=== PATIENT | female | born 1980 | race Hispanic/Latino ===

== ENCOUNTER → 2023-12-07 | Day surgery (SDC) | payer OTHER ==
--- NOTE | 2023-12-07 10:21 | RAD REPORT ---
EXAM DESCRIPTION: Ultrasound-guided vacuum assisted left breast core biopsy CLINICAL HISTORY: Breast mass N63.20 COMPARISON: No comparisons FINDINGS: Informed consent was obtained and time-out was performed. The patient's left breast was prepped and draped in the usual sterile fashion. 1% lidocaine was used for local anesthetic purposes. Utilizing aseptic technique and ultrasound guidance, a 12 gauge vacuum assisted core biopsy device wa s used to obtain 2 core specimens through the 2.5 cm mass of interest upper-outer quadrant. A post bi opsy clip was then placed. All collected material was sent for cytology. Patient tolerated procedure well. IMPRESSION: Successful ultrasound guided vacuum assisted left breast mass biopsy.
== END ==
LOC: DS 08:45
PROVIDERS: ATTEND Obstetrics & Gynecology
DX: D48.61 Neoplasm of uncertain behavior of right breast (principal); N64.89 Other specified disorders of breast
CPT/HCPCS: 19083; 88305

== ENCOUNTER 2025-04-20 02:03 | Emergency (ER) | payer OTHER ==
--- OUTSIDE RECORDS SUMMARY | 2025-04-20 02:07 | XMS REPORT | Continuity of Care Document ---
Author Name Unknown Address [address] [place] [address] Organization [facility] [place] Address 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 Name Role Phone Jun Dugan MA Attending Clinician Unavailab Mishel Euceda MD Attending Clinician [phone] MISHEL ORLANDO Attending Clinician Unavailabl e Payers Payer Name Policy Type Policy Number Effective Date Expirati on Date Source [employer] [id number] 2024 00:00:00 Social History Social Habit Start Date Stop Date Quantity Comments Source Gender identity 2023-11-14 15:40:28 Identifies as female gender (finding) [facility] ASSERTION Not Romi Folres Sexual orientation [facility] Alcoholic beverage intake 2024-10-06 00:00:00 2024-10-06 00:00:00 Lifetime non-drinker (finding) [facility] History of Social function 2024-10-06 00:00:00 2024-10-06 00:00:00 [facility] Tobacco use and exposure 2024-10-03 00:00:00 2024-10-03 00:00:00 Smokeless tobacco non-user [facility] Sex 2023-11-14 15:40:28 2023-11-14 15:40:28 Female (finding) [facility] Smoking Status Start Date Stop Date Source Tobacco smoking consumption unknown [facility] Never smoked tobacco Romi Flores Medications Ordered Medication Name Filled Medication Name Start Date Stop Date Current Medication? Ordering Clinician Indication Dosage Frequency Signature (SIG) Comments Components Source norethindro ne-ethinyl estradiol-f errous fumarate biphasic (Lo Loestrin Fe) 1 MG-10 MCG / 10 MCG tablet norethindro ne-ethinyl estradiol-f errous fumarate biphasic (Lo Loestrin Fe) 1 MG-10 MCG / 10 MCG tablet 02-26 00:00: 00 02-26 23:59 :00 No 1{tbl} QD Take 1 tablet by mouth 1 time each day. Romi Adorno [facility] olmesartan- hydroCHLORO thiazide (BENIcar HCT) 20-12.5 MG tablet olmesartan- hydroCHLORO thiazide (BENIcar HCT) 20-12.5 MG tablet - 13:56: 25 Yes 1{tbl} QD Take 1 tablet by mouth 1 time each day. Romi Adorno [facility] norethindro ne-ethinyl estradiol-f errous fumarate biphasic (Lo Loestrin Fe) 1 MG-10 MCG / 10 MCG tablet norethindro ne-ethinyl estradiol-f errous fumarate biphasic (Lo Loestrin Fe) 1 MG-10 MCG / 10 MCG tablet 1- 00:00: 00 02-26 00:00 :00 No TAKE 1 TABLET ORALLY ONCE A DAY ONLY THE ACTIVE PILLS FOR 3 MONTHS AND THEN THE ENTIRE PACK OF PILLS FOR HER 4TH PACK 90 DAYS Romi Adorno [facility] Vital Signs Vital Name Observation Time Observation Value Comments S paxton Systolic blood pressure 2024-10-06 13:55:00 133 mm[Hg] [facility] Diastolic blood pressure 2024-10-06 13:55:00 87 mm[Hg] [facility] Heart rate 2024-10-06 13:55:00 93 /min Shirin arita Kyree [facility] Body temperature 2024-10-06 13:55:00 36.28 Danielle [facility] Body height 2024-10-06 13:55:00 160 [facility] weight 2024-10-06 13:55:00 71.215 kg [facility] BMI 2024-10-06 13:55:00 27.81 kg/m2 [facility] Systolic blood pressure 2024-10-06 13:55:00 133 mm[Hg] [facility]el[facility] Diastolic blood pressure 2024-10-06 13:55:00 87 mm[Hg] [facility] Heart rate 2024-10-06 13:55:00 93 /min [facility] 2024-10-06 13:55:00 36.28 Danielle [facility] Body height 2024-10-06 13:55:00 160 cm Koffi wilson [facility] Body weight 2024-10-06 13:55:00 71.215 kg Koffi wilson [facility] BMI 2024-10-06 13:55:00 27.81 kg/m2 [facility] Procedures Procedure Date / Time Performed Performing Clinician Source PAP IMAGE-GUIDED W/AGE BASED SCR PROTOCOLS (AMB) 2024-10-06 14:48:00 Mishel Orlando [facility] Bilateral diagnostic mammogram with tomosynthesis 2024-10-06 00:00:00 [facility] Bilateral breast US complete 2024-10-06 00:00:00 [facility] PAP SMEAR 2023-10-04 00:00:00 ProviderYunioric External Data [facility] PAP SMEAR 2022-09-24 00:00:00 ProviderYunior External Data [facility] Plan of Care Planned Activity Planned Date Details Comments Source Encounters Start Date/Time End Date/Time Encounter Type Admission Type Attending [facility] Care Facility Care Department Encounter ID Source 2025-03-28 00:00:00 2025-03-28 16:45:45 Telephone Jun Dugan Aryelle [facility] 1..[id number] [id number] [facility] 2025-02-26 00:00:00 2025-02-26 10:27:15 Refill Mishel Orlando [facility] 1..840.114 [id number] Romi green [facility] 2024-10-06 13:44:55 2024-10-06 14:19:06 Outpatient Elective MISHEL ORLANDO EOUT EOUT [id number] [facility] 2024-10-06 13:15:00 2024-10-06 14:19:06 [facility] [id number] Romi Adorno [facility] 2024-09-14 00:00:00 2024-09-18 16:25:21 [facility] [id number] Romi Adorno [facility] 2024-07-12 10:24:55 2024-07-12 10:24:55 Outpatient [facility] [id number] Lalit Lama 2024-06-29 08:19:19 2024-06-29 08:19:19 Outpatient [facility] [id number] Lalit Lama 2024-06-28 10:59:29 2024-06-28 10:59:29 Outpatient [facility] [id number] Lalit Lama 2023-08-18 10:33:56 2023-08-18 10:33:56 Outpatient [facility] [id number] Lalit Lama 2023-07-27 09:19:42 2023-07-27 09:19:42 Outpatient [facility] [id number] Lalit Lama Results Test Description Test Time Test Comments Results Result Co mments Source [facility] Notes Upcoming Encounters Date/Time Note Provider Source Health Maintenance Due Date Last Done Comments Lipid Panel 1981 Varicella Vaccines (1 of 2 - 13+ 2-dose series) 1994 DTaP/Tdap/Td Vaccines (1 - Tdap) 2000 Hepatitis B Vaccines (1 of 3 - 19+ 3-dose series) 2000 HPV Vaccines (1 - 3-dose SCD M series) 2008 Mammogram 2021 Influenza Vaccine (#1) 2025 Annual Physical 10/06/2025 10/06/2024, 10/06/2024 Pap Smear 10/06/2027 10/06/2024, 10/04/2023, 09/24/2022 Cervical Cancer Screening 10/06/2029 HPV/Cotest 10/06/2029 10/06/2024 Respiratory Syncytial Virus (RSV) Adult Series (1 - 1-dose 75+ series) 2056 HIB Vaccines Aged Out No longer eligi ble based on patient's age to complete this topic Hepatitis A Vaccines Aged Out No long er eligible based on patient's age to complete this topic IPV Vaccines Aged Out No longer eligi ble based on patient's age to complete this topic Meningococcal Vaccine Aged Out No luca bonnie eligible based on patient's age to complete this topic Pneumococcal Vaccine: Pediatrics (0 to 5 Years) and At-Risk Patients (6 to 64 Years) Aged Out No longer eligible b ased on patient's age to complete this topic Rotavirus Vaccines Aged Out No longer eligible based on patient's age to complete this topic [facility] [id number] 16:44:53 reviewed Mammogram and also received on behalf of [facility] a no show to a follow up apt patient had for a surgical consult Patient was encouraged to call facility back [facility] [id number] 10:27:20* [facility] [id number] 10:27:20 Upcoming Encounters Health Maintenance Due Date Last Done Comments Lipid Panel 1981 Varicella Vaccines (1 of 2 - 13+ 2-dose series) 1994 HPV Vaccines (1 - 3-dose series) 1996 DTaP/Tdap/Td Vaccines (1 - Tdap) 2000 Hepatitis B Vaccines (1 of 3 - 19+ 3-dose series) 2000 Mammogram 2021 Influenza Vaccine (#1) 2025 Annual Physical 10/06/2025 10/06/2024, 10/06/2024 Pap Smear 10/06/2027 10/06/2024, 10/04/2023, 09/24/2022 Cervical Cancer Screening 10/06/2029 HPV/Cotest 10/06/2029 10/06/2024 Respiratory Syncytial Virus (RSV) Adult Series (1 - 1-dose 75+ series) 2056 HIB Vaccines Aged Out No longer eligi ble based on patient's age to complete this topic Hepatitis A Vaccines Aged Out No long er eligible based on patient's age to complete this topic IPV Vaccines Aged Out No longer eligi ble based on patient's age to complete this topic Meningococcal Vaccine Aged Out No luca bonnie eligible based on patient's age to complete this topic Pneumococcal Vaccine: Pediatrics (0 to 5 Years) and At-Risk Patients (6 to 64 Years) Aged Out No longer eligible b ased on patient's age to complete this topic Rotavirus Vaccines Aged Out No longer eligible based on patient's age to complete this topic Winston [id number] 16:12:05* Consultation (Routine) - Pending Review Specialty Diagnoses / Procedures Referred By Elmer blanco Referred To Contact General Surgery Diagnoses Fibrocystic breast changes, unspecified laterality Mass of left breast, unspecified quadrant Procedures [place] OFFICE/OUTPATIENT [facility] 60 MINUTES Mishel Orlando MD [address] [address] Phone: tel: fax: Karen Gr MD [address] [address] Phone: tel: fax: Referral ID Status Reason Start Date Expiration Date Visits Requested Visits Authorized [id number] Pending Review Specialty Services Required 10/06/2024 04/04/2025 1 1 COLLECTOR* Imaging (Routine) - Pending Review Specialty Diagnoses / Procedures Referred By Elmer blanco Referred To Contact Diagnoses Fibrocystic breast changes, unspecified laterality Mass of left breast, unspecified quadrant Procedures Bilateral diagnostic mammogram with tomosynthesis Mishel Orlando MD [address] [facility] [address] [place] [address] Phone: tel: fax: Referral ID Status Reason Start Date Expiration Date V isits Requested Visits Authorized [id number] Pending Review 10/06/2024 04/04/2025 1 1 COLLECTOR [facility] [id number] 16:12:05* Mishel Orlando MD - 10/06/2024 1:15 PM RAG COLLECTOR Here for WWE Established patient here for woman exam. 44 years old 2 para 2-0-0-2. Taking low Loestrin for control and does not have menstrual period with this control. No complaint no side effects wants refill. Mammogram diagnostic and ultrasound ordered today due to left breast lump referred to Dr. Gr for further surgical recommendations. Had abnormal mammogram in October 18, 2023 BI-RADS 2 suspicion. Empower information given today. For genetic testing. HPV vaccine and flu vaccine encouraged. Review of Systems All other systems reviewed and are negative. 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 No lesions, erythema. Vagina is pink, moist, and rugous without lesions. No abnormal discharge. PAP smear collected, Assessment:Encounter Diagnoses Name Primary? Well woman exam with routine gynecological exam Cervical cancer screening Breast cancer screening by mammogram Fibrocystic breast changes, unspecified laterality Mass of left breast, unspecified quadrant Plan: - [facility] - Refill OCP - [id number] 16:12:05Upcoming Encounters Scheduled Orders Name Type Priority Associated Diagnoses Orde r Schedule Bilateral diagnostic mammogram with tomosynthesis Imaging Routine Fibrocystic breast changes, unspecified laterality Mass of left breast, unspecified quadrant Expected: 10/06/2024, Expires: 12/04/2025 Bilateral breast US complete Imaging Routine Fibrocystic breast changes, unspecified laterality Mass of left breast, unspecified quadrant Expected: 10/06/2024, Expires: 12/04/2025 Scheduled Referrals Name Type Priority Associated Diagnoses Orde r Schedule Ambulatory referral to General Surgery (aka Breast) Outpatient Referral Routine Fibrocystic breast changes, unspecified laterality Mass of left breast, unspecified quadrant Expected: 10/06/2024 (Approximate), Expires: 10/06/2025 Health Maintenance Due Date Last Done Comments Lipid Panel 1981 Varicella Vaccines (1 of 2 - 13+ 2-dose series) 1994 DTaP/Tdap/Td Vaccines (1 - Tdap) 2000 Hepatitis B Vaccines (1 of 3 - 19+ 3-dose series) 2000 Mammogram 2021 Influenza Vaccine (#1) 2024 Annual Physical 10/06/2025 10/06/2024, 10/06/2024 Pap Smear 10/06/2027 10/06/2024, 10/04/2023, 09/24/2022 Cervical Cancer Screening 10/06/2029 HPV/Cotest 10/06/2029 10/06/2024 HIB Vaccines Aged Out No longer eligi ble based on patient's age to complete this topic HPV Vaccines Aged Out No longer eligi ble based on patient's age to complete this topic Hepatitis A Vaccines Aged Out No long er eligible based on patient's age to complete this topic IPV Vaccines Aged Out No longer eligi ble based on patient's age to complete this topic Meningococcal Vaccine Aged Out No luca bonnie eligible based on patient's age to complete this topic Pneumococcal Vaccine: Pediatrics (0 to 5 Years) and At-Risk Patients (6 to 64 Years) Aged Out No longer eligible b ased on patient's age to complete this topic Rotavirus Vaccines Aged Out No longer eligible based on patient's age to complete this topic [id number] 16:12:05 Diagnosis Well woman exam with routine gynecological exam Routine gynecological examination Cervical cancer screening Screening for malignant neoplasm of the cervix Breast cancer screening by barbara kirkpatrick Fibrocystic breast changes, unspecified laterality Mass of left breast, unspeci fied quadrant [id number] 16:25:35* [id number] 16:25:35Upcoming Encounters Health Maintenance Due Date Last Done Comments Lipid Panel 1981 Annual Physical 1984 Varicella Vaccines (1 of 2 - 13+ 2-dose series) 1994 DTaP/Tdap/Td Vaccines (1 - Tdap) 2000 Hepatitis B Vaccines (1 of 3 - 19+ 3-dose series) 2000 Pap Smear 2002 Cervical Cancer Screening 2011 HPV/Cotest 2011 Mammogram 2021 Influenza Vaccine (#1) 2024 HIB Vaccines Aged Out No longer eligi ble based on patient's age to complete this topic HPV Vaccines Aged Out No longer eligi ble based on patient's age to complete this topic Hepatitis A Vaccines Aged Out No long er eligible based on patient's age to complete this topic IPV Vaccines Aged Out No longer eligi ble based on patient's age to complete this topic Meningococcal Vaccine Aged Out No luca bonnie eligible based on patient's age to complete this topic Pneumococcal Vaccine: Pediat rics (0 to 5 Years) and At-Risk Patients (6 to 64 Years) Aged Out No longer eligible b ased on patient's age to complete this topic Rotavirus Vaccines Aged Out No longer eligible based on patient's age to complete this topic [facility]
[2025-04-20] MEDS ORDERED: ONDANSETRON 4 MG/2 ML VIAL ONE (02:25)
[2025-04-20] MEDS ORDERED: KETOROLAC 30 MG/ML INJ ONE (02:25)
[2025-04-20] MEDS ORDERED: FAMOTIDINE 20 MG/2 ML VIAL IV ONE (02:26)
[2025-04-20] MEDS ORDERED: NA CHLORIDE 0.9% 1,000 ML ONE (02:26)
[2025-04-20] MEDS ORDERED: MORPHINE 4 MG/ML SYR ONE ×2 (02:26→04:14)
[2025-04-20 02:59] LABS: Absolute Lymphocytes (CBC) 2.7 K/uL (0.7-4.9); Hematocrit 39.7 % (36.0-45.0); Hemoglobin 13.2 g/dL (12.0-15.0); MCH 26.4 pg (27.0-35.0); MCHC 33.3 g/dL (32.0-36.0); MCV 79.3 fL (80-100); MPV 8.7 fL (7.6-11.3); Nucleated RBC Absolute Count 0.0 (0-0); Nucleated Red Blood Cells % 0.0 % (0-0); RBC Red Blood Cell Count 5.01 M/uL (3.86-4.86); White Blood Count 11.00 thou/uL (4.3-10.9)
[2025-04-20 03:18] LABS: ALT/SGPT 18.0 U/L (13-56); AST/SGOT 14.0 U/L (15-37); Albumin 3.5 g/dL (3.4-5.0); Albumin/Globulin Ratio 0.8 (1.1-1.8); Alkaline Phosphatase 60.0 U/L (45-117); Anion Gap 11.7 mEq/L (5.0-15.0); BUN Blood Urea Nitrogen 18.0 mg/dL (7-18); Globulin 4.2 g/dL (2.3-3.5); Glucose Level 128.0 mg/dL (74-106); Lipase 45.0 U/L (13-75); Potassium 2.7 mEq/L (3.5-5.1)
[2025-04-20 04:13] LABS: Sqamous Epithelial <5 /HPF (None Seen); Urine Micro Reflex YN NO BILL MICROSCOPIC
[2025-04-20] MEDS ORDERED: TAMSULOSIN 0.4 MG SR CAP ONE (04:14)
[2025-04-20] MEDS ORDERED: METOCLOPRAMIDE 10 MG/2mL INJ ONE (04:14)
[2025-04-20] MEDS ORDERED: POTASSIUM CL SA 10 MEQ TAB PO ONE (05:16)
--- NOTE | 2025-04-20 05:44 | RAD REPORT ---
CLINICAL HISTORY: Abdominal pain. COMPARISON: None. TECHNIQUE: CT ABDOMEN PELVIS WITH IV CONTRAST on 04/20/2025 2:19 AM CDT This exam was performed according to our departmental dose-optimization program, which includes autom ated exposure control, adjustment of the mA and/or kV according to patient size and/or use of iterative reconstruction technique. FINDINGS: Lower lungs are clear. Abdomen: The liver is normal in appearance. There is minimal intrauterine extrahepatic biliary dilata tion. Gallbladder is normal in appearance. The pancreas and spleen are normal in appearance. Adrenal glands are normal. Lower pole right renal cyst measures 17 mm. There is mild left hydronephro sis. There is a 3 mm left distal ureteral calculus. Abdominal aorta is normal in course and caliber without aneurysm. There is no free air. There is no r etroperitoneal adenopathy. Pelvis: There is no bowel obstruction. Urinary bladder is unremarkable. There is no free fluid. Uteru s is normal in size. Appendix is normal. Skeleton: There are no acute osseous findings. No suspicious bony lesions. IMPRESSION: Mildly obstructing 3 mm left distal ureteral calculus. Right Bosniak I benign renal cyst measuring 1.7 cm. No follow-up imaging is recommended. JACR 2018 Fe b; 264-273, Management of the Incidental Renal Mass on CT, [employer] 202; [id number], Bosniak Classification of Cystic Renal Masses, Version 2019. Electronically signed by: Jonnathan Gregory MD 04/20/2025 05:07 AM CDT RP Due to temporary technical issues with the PACS/[employer] reporting system, reports are being nancy d by the in-house radiologist without review as a courtesy to ensure prompt reporting the interpreting radiologist is fully responsible for the content of the report. Transcribed Date/Time: 04/20/2025 5:44 AM
--- NOTE | 2025-04-20 05:51 | ER ---
Nurse's Notes [facility] Name: Catie Balderas Age: 44 yrs Sex: Female : 1980 Arrival Date: 04/20/2025 Time: 02:03 Bed 15 Private MD: Diagnosis: Acute left ureteral calculus with hydronephrosis Presentation: 04/20 02:17 Chief complaint: Patient states: left sided abdominal pain that started 2 hours ago. No cp4 N/V/D reported. Coronavirus screen: Vaccine status: Patient reports being unvaccinated. Client denies travel out of the [place] in the last 14 days. At this time, the client does not indicate any symptoms associated with coronavirus-19. Ebola Screen: Patient negative for fever greater than or equal to 101.5 degrees Fahrenheit, and additional compatible Ebola Virus Disease symptoms Patient denies exposure to infectious person. Patient denies travel to an Ebola-affected area in the 21 days before illness onset. No symptoms or risks identified at this time. Initial Sepsis Screen: Does the patient meet any 2 criteria? No. Patient's initial sepsis screen is negative. Does the patient have a suspected source of infection? No. Patient's initial sepsis screen is negative. Risk Assessment: Do you want to hurt yourself or someone else? Patient reports no desire to harm self or others. Onset of symptoms was April 20, 2025 at 00:00. 02:17 Method Of Arrival: Wheelchair cp4 02:17 Acuity: ATILIO 3 cp4 Triage Assessment: 02:18 General: Appears in no apparent distress. uncomfortable, Behavior is calm, cooperative, cp4 appropriate for age. Pain: Complains of pain in abdomen. GI: Reports lower abdominal pain, upper abdominal pain. 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 - Infectious Disease History:: Denies. - Social history:: Smoking status: Patient denies any tobacco usage or history of. - Family history:: not pertinent. Screenin:48 [facility] ED Fall Risk Assessment (Adult) History of falling in the last 3 months, kd4 including since admission No falls in past 3 months (0 pts) Confusion or Disorientation No (0 pts) Intoxicated or Sedated No (0 pts) Impaired Gait No (0 pts) Mobility Assist Device Used No (0 pt) Altered Elimination No (0 pt) Score/Fall Risk Level 0 - 2 = Low Risk Oriented to surroundings. Abuse screen: Denies threats or abuse. Nutritional screening: No deficits noted. Tuberculosis screening: No symptoms or risk factors identified. Assessment: 02:48 Pain: Pain currently is 10 out of 10 on a pain scale. Neuro:. Respiratory: No deficits kd4 noted. GI: Reports left side abd pain. 05:57 GI: Bowel sounds present X 4 quads. Abd is soft. kd4 Vital Signs: 02:17 BP 130 / 76; Pulse 76; Resp 18; Temp 97.5; Pulse Ox 100% ; Weight 74.84 kg; Height 5 cp4 ft. 5 in. ; Pain 10/10; 03:10 Pain 3/10; kd4 04:06 BP 113 / 74; Pulse 89; Resp 20; Pulse Ox 100% on R/A; kd4 04:23 Pain 7/10; kd4 05:56 BP 115 / 80; Pulse 83; Resp 18; Temp 97.8; Pulse Ox 100% on R/A; Pain 0/10; kd4 02:17 Body Mass Index 27.46 (74.84 kg, 165.1 cm) cp4 02:17 Pain Scale: Adult cp4 03:10 Pain Scale: Adult kd4 04:23 Pain Scale: Adult kd4 05:56 Pain Scale: Adult kd4 Travis Coma Score: 02:48 Eye Response: spontaneous(4). Motor Response: obeys commands(6). Verbal Response: kd4 oriented(5). Total: 15. 21:17 Eye Response: spontaneous(4). Motor Response: obeys commands(6). Verbal Response: sp4 oriented(5). Total: 15. ED Course: 02:04 Patient arrived in ED. jj6 02:08 Jose Branch MD is Attending Physician. sp4 02:18 Triage completed. cp4 02:18 Arm band placed on right wrist. Patient placed in waiting room. cp4 02:20 Inserted saline lock: 20 gauge in right antecubital area, using aseptic technique. tb4 Blood collected. Flushed with 10 mL NS. 02:46 Initial lab(s) drawn, by me, sent to lab. EKG done, by ED staff, reviewed by Jose Branch MD X-ray(s) taken. 02:47 Nuha Carrillo, CRISTIAN is Primary Nurse. kd4 02:48 Patient has correct armband on for positive identification. Bed in low position. Call kd4 light in reach. Side rails up X2. Adult w/ patient. Client placed on continuous cardiac and pulse oximetry monitoring. NIBP monitoring applied. 03:50 CT Abd/Pelvis - IV Contrast Only In Process Unspecified. EDMS 05:58 No provider procedures requiring assistance completed. IV discontinued. kd4 06:10 Provided Education on: d/c instruction. kd4 Administered Medications: 02:44 Drug: Famotidine IVP 20 mg IVP once; dilute with 10 mL 0.9% NaCl; give over 2 minutes tb4 Route: IVP; Site: right antecubital; 04:21 Follow up: Response: No adverse reaction kd4 02:44 Drug: Ondansetron IVP 4 mg IVP once; over 2 minutes Route: IVP; Site: right antecubital;tb4 04:21 Follow up: Response: No adverse reaction kd4 02:44 Drug: NS 0.9% IV 1000 ml IV at 1 bolus Per protocol; to be given as a bolus over 60 tb4 minutes Route: IV; Rate: 1 bolus; Site: right antecubital; 04:21 Follow up: IV Status: Completed infusion kd4 05:18 Follow up: IV Status: Completed infusion kd4 02:45 Drug: TORadol - Ketorolac IVP 30 mg IVP once Route: IVP; Site: right antecubital; tb4 04:20 Follow up: Response: No adverse reaction kd4 02:45 Drug: morphine IVP or IV 4 mg IVP once over 4 mins Route: IVP; Infused Over: 4 mins; tb4 Site: right antecubital; 04:20 Follow up: Response: No adverse reaction kd4 02:45 Drug: Droperidol IVP 2.5 mg IVP once Route: IVP; Site: right antecubital; tb4 04:20 Follow up: Response: No adverse reaction kd4 05:17 Follow up: Response: No adverse reaction kd4 04:19 Drug: metoCLOPramide IVP 10 mg IVP once; over 1 to 2 minutes Route: IVP; Site: right kd4 antecubital; 05:17 Follow up: Response: No adverse reaction kd4 04:20 Drug: morphine IVP or IV 4 mg IVP once over 4 mins Route: IVP; Infused Over: 4 mins; kd4 Site: right antecubital; 05:17 Follow up: Response: No adverse reaction kd4 04:20 Drug: Flomax PO 0.8 mg PO once Route: PO; kd4 05:17 Follow up: Response: No adverse reaction kd4 05:18 Drug: Potassium Chloride PO 40 mEq PO once Route: PO; kd4 05:33 Follow up: Response: No adverse reaction kd4 Medication: 05:57 VIS not applicable for this client. kd4 Output: 06:11 Urine: 1ml (Voided); Total: 1ml. kd4 Outcome: 05:50 Discharge ordered by . sp4 05:58 Discharged to home ambulatory, with family, kd4 05:58 Condition: stable 06:09 Discharge instructions given to patient, family, Instructed on discharge instructions, kd4 follow up and referral plans. medication usage, Demonstrated understanding of instructions, follow-up care, medications, Prescriptions given X 4, 06:12 Patient left the ED. kd4 Signatures: Dispatcher [employer] [id number] [id number] Jose Branch MD MD sp4 Kamilla Pardo Karim, RN RN kd4 Pamella Cabrera RN RN tb4
--- NOTE | 2025-04-20 05:51 | EDPHYS ---
Physician Documentation [facility] Name: Catie Balderas Age: 44 yrs Sex: Female : 1980 Arrival Date: 04/20/2025 Time: 02:03 Bed 15 Private MD: ED Physician Jose Branch HPI: 04/20 02:08 This 44 yrs old Female presents to ER via Unassigned with complaints of sp4 Abdominal Pain, Nausea/Vomiting. 21:15 Patient presents with acute onset moderate to severe left flank pain Denies bloody sp4 urine.. 21:17 Reports associated nausea vomiting. 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 - Infectious Disease History:: Denies. - Social history:: Smoking status: Patient denies any tobacco usage or history of. - Family history:: not pertinent. ROS: 21:15 Constitutional: Negative for fever, chills, and weight loss, positive for left flank sp4 pain 21:15 All other systems are negative, Exam: 21:17 Constitutional: This is a well developed, well nourished patient who is awake, alert, sp4 and in no acute distress. Head/Face: Normocephalic, atraumatic. Eyes: Pupils equal round and reactive to light, extra-ocular motions intact. Lids and lashes normal. Conjunctiva and sclera are not injected. Cornea within normal limits. Periorbital areas with no swelling, redness, or edema. ENT: Nares patent. No nasal discharge, no septal abnormalities noted. Tympanic membranes are normal and external auditory canals are clear. Oropharynx with no redness, swelling, or masses, exudates, or evidence of obstruction, uvula midline. Mucous membranes moist. Neck: Trachea midline, no thyromegaly or masses palpated, and no cervical lymphadenopathy. Supple, full range of motion without nuchal rigidity, or vertebral point tenderness. Chest/axilla: Normal chest wall appearance and motion. Nontender with no deformity. No lesions are appreciated. Cardiovascular: Regular rate and rhythm with a normal S1 and S2. No gallops, murmurs, or rubs. No pulse deficits. Respiratory: Lungs have equal breath sounds bilaterally, clear to auscultation and percussion. No rales, rhonchi or wheezes noted. No increased work of breathing, no retractions or nasal flaring. Abdomen/GI: Soft, with normal bowel sounds. Positive left flank tenderness. Back: No spinal tenderness. No costovertebral tenderness. Skin: Warm, dry with normal turgor. Normal color with no rashes, no lesions, and no evidence of cellulitis. MS/ Extremity: Pulses equal, no cyanosis. Neurovascular intact. Full, normal range of motion. Neuro: Awake and alert, GCS 15, oriented to person, place, time, and situation. Cranial nerves II-XII grossly intact. Motor strength 5/5 in all extremities. Sensory grossly intact. Psych: Awake, alert, with orientation to person, place and time. Behavior, mood, and affect are within normal limits Vital Signs: 02:17 BP 130 / 76; Pulse 76; Resp 18; Temp 97.5; Pulse Ox 100% ; Weight 74.84 kg; Height 5 cp4 ft. 5 in. ; Pain 10/10; 03:10 Pain 3/10; kd4 04:06 BP 113 / 74; Pulse 89; Resp 20; Pulse Ox 100% on R/A; kd4 04:23 Pain 7/10; kd4 05:56 BP 115 / 80; Pulse 83; Resp 18; Temp 97.8; Pulse Ox 100% on R/A; Pain 0/10; kd4 02:17 Body Mass Index 27.46 (74.84 kg, 165.1 cm) cp4 02:17 Pain Scale: Adult cp4 03:10 Pain Scale: Adult kd4 04:23 Pain Scale: Adult kd4 05:56 Pain Scale: Adult kd4 Hysham Coma Score: 02:48 Eye Response: spontaneous(4). Motor Response: obeys commands(6). Verbal Response: kd4 oriented(5). Total: 15. 21:17 Eye Response: spontaneous(4). Motor Response: obeys commands(6). Verbal Response: sp4 oriented(5). Total: 15. MDM: 02:11 Medical Screening Exam initiated sp4 05:41 ED course: FINDINGS: Lower lungs are clear. Abdomen: The liver is normal in appearance. sp4 There is minimal intrauterine extrahepatic biliary dilatation. Gallbladder is normal in appearance. The pancreas and spleen are normal in appearance. Adrenal glands are normal. Lower pole right renal cyst measures 17 mm. There is mild left hydronephrosis. There is a 3 mm left distal ureteral calculus. Abdominal aorta is normal in course and caliber without aneurysm. There is no free air. There is no retroperitoneal adenopathy. Pelvis: There is no bowel obstruction. Urinary bladder is unremarkable. There is no free fluid. Uterus is normal in size. Appendix is normal. Skeleton: There are no acute osseous findings. No suspicious bony lesions. IMPRESSION: Mildly obstructing 3 mm left distal ureteral calculus. Right Bosniak I benign renal cyst measuring 1.7 cm. No follow-up imaging is recommended.. 21:17 Differential diagnosis: Nonspecific abd pain, gastritis, cholecystitis, pancreatitis, sp4 appendicitis, diverticulitis, viral gastroenteritis, gastroenteritis. Data reviewed: vital signs, nurses notes, lab test result(s), radiologic studies, CT scan. Consideration of Admission/Observation Escalation of care including admission/observation considered. ED course: Pain has been alleviated. Patient has 3 mm left distal ureteral calculus. Additionally small right renal cyst. Stable for discharge home. As needed medications prescribed.. 04/20 02:19 Order name: CBC with Diff; Complete Time: 03:34 sp4 04/20 02:19 Order name: CMP; Complete Time: 03:34 sp4 04/20 02:19 Order name: Lipase; Complete Time: 03:34 sp4 04/20 02:20 Order name: UA W/ Microscopic; Complete Time: 04:54 sp4 04/20 02:56 Order name: Test Serum, [place]; Complete Time: 03:34 EDMS 04/20 02:19 Order name: CT Abd/Pelvis - IV Contrast Only sp4 04/20 02:19 Order name: IV Saline Lock; Complete Time: 02:45 sp4 04/20 02:19 Order name: Labs collected and sent; Complete Time: 02:45 sp4 Administered Medications: 02:44 Drug: Famotidine IVP 20 mg IVP once; dilute with 10 mL 0.9% NaCl; give over 2 minutes tb4 Route: IVP; Site: right antecubital; 04:21 Follow up: Response: No adverse reaction kd4 02:44 Drug: Ondansetron IVP 4 mg IVP once; over 2 minutes Route: IVP; Site: right antecubital;tb4 04:21 Follow up: Response: No adverse reaction kd4 02:44 Drug: NS 0.9% IV 1000 ml IV at 1 bolus Per protocol; to be given as a bolus over 60 tb4 minutes Route: IV; Rate: 1 bolus; Site: right antecubital; 04:21 Follow up: IV Status: Completed infusion kd4 05:18 Follow up: IV Status: Completed infusion kd4 02:45 Drug: TORadol - Ketorolac IVP 30 mg IVP once Route: IVP; Site: right antecubital; tb4 04:20 Follow up: Response: No adverse reaction kd4 02:45 Drug: morphine IVP or IV 4 mg IVP once over 4 mins Route: IVP; Infused Over: 4 mins; tb4 Site: right antecubital; 04:20 Follow up: Response: No adverse reaction kd4 02:45 Drug: Droperidol IVP 2.5 mg IVP once Route: IVP; Site: right antecubital; tb4 04:20 Follow up: Response: No adverse reaction kd4 05:17 Follow up: Response: No adverse reaction kd4 04:19 Drug: metoCLOPramide IVP 10 mg IVP once; over 1 to 2 minutes Route: IVP; Site: right kd4 antecubital; 05:17 Follow up: Response: No adverse reaction kd4 04:20 Drug: morphine IVP or IV 4 mg IVP once over 4 mins Route: IVP; Infused Over: 4 mins; kd4 Site: right antecubital; 05:17 Follow up: Response: No adverse reaction kd4 04:20 Drug: Flomax PO 0.8 mg PO once Route: PO; kd4 05:17 Follow up: Response: No adverse reaction kd4 05:18 Drug: Potassium Chloride PO 40 mEq PO once Route: PO; kd4 05:33 Follow up: Response: No adverse reaction kd4 Disposition: 21:17 Chart complete. sp4 Disposition Summary: 04/20/25 05:50 Discharge Ordered Notes: Location: Home sp4 Problem: new sp4 Symptoms: have improved sp4 Condition: Stable sp4 Diagnosis - Acute left ureteral calculus with hydronephrosis sp4 Followup: sp4 - With: Private Physician - When: 7 - 10 days - Reason: Recheck today's complaints Discharge Instructions: - Discharge Summary Sheet sp4 - Kidney Stones, [id number] sp4 Forms: - Patient Portal Instructions sp4 Prescriptions: - Flomax 0.4 mg Oral capsule - take 1 capsule ORAL route daily; 30 capsule; Refills: 0, Product Selection sp4 Permitted - ketorolac 10 mg Oral tablet - take 1 tablet ORAL route every 8 hours PRN pain; 30 tablet; Refills: 0, Product sp4 Selection Permitted - Tramadol 50 mg Oral Tablet - take 1 tablet ORAL route every 8 hours as needed; 12 tablet; Refills: 0, sp4 Product Selection Permitted - ondansetron 8 mg Oral Tablet,disintegrating - take 1 tablet ORAL route every 8 hours; 30 tablet; Refills: 0, Product sp4 Selection Permitted Signatures: Dispatcher [employer] EDMS Jose Branch MD MD sp4 Kamilla Pardo cp4 Nuha Carrillo, RN RN kd4 Pamella Cabrera, RN RN tb4 Corrections: (The following items were deleted from the chart) 02:20 02:20 Abdomen Pelvis W Con+CT.RAD.BRZ ordered. EDMS EDMS 02:56 02:20 Test, Urine+UC.LAB.BRZ ordered. EDMS EDMS 21:17 21:15 Patient presents with acute onset moderate to severe left flank pain without sp4 other symptoms. Denies bloody urine.. sp4
[2025-04-20 06:16] VITALS: O2SAT 100
[2025-04-20 06:23] VITALS: BP 115/80; TEMP 97.8
== END 2025-04-20 06:12 | disposition home or self-care (01) ==
LOC: ER 02:03
DX: N13.2 Hydronephrosis with renal and ureteral calculous obstruction (principal)
CPT/HCPCS: 96361; 85025; 81001; 36415; 84703; 83690; 80053; 74177; 96375; 96374; 99285; Q9967; J2765; J2405; J1790; J7030

== ENCOUNTER → 2025-05-21 | Day surgery (SDC) | payer OTHER ==
--- NOTE | 2025-05-22 10:13 | RAD REPORT ---
EXAMINATION: ULTRASOUND GUIDED VACUUM-ASSISTED LEFT BREAST CORE NEEDLE BIOPSY LEFT breast core needle biopsy; percutaneous, using ultrasound guidance. Image guided placement, metallic localization clip, percutaneous. Post Bx mammogram: LEFT Dx Mammogram. CLINICAL INDICATION:. N63.24 INFORMED CONSENT: The risks, benefits, alternatives, and potential complications of ultrasound guided vacuum-assisted LEFT breast biopsy were discussed with the patient. An informed consent sheet was signed. The risks include but are not limited to the following: bleeding, infection, vascular injury, organ injury, pneumothorax, allergic reaction, and the need for emergent surgery/procedures. BIOPSY TARGET: LEFT breast, Lateral approach. Small lesion identified at 6:00 NEEDLE: 12 gauge Celero vacuum-assisted core biopsy needle, 3 cores. SEDATION: None. COMPLICATIONS: None. TECHNIQUE: Appropriate audible time out was performed. The skin was prepped and draped in the normal fashion. The soft tissues were anesthetized with lidocaine. Utilizing real-time ultrasound guidance, a vacuum-assisted core biopsy needle was placed into the breast location described below wi th removal of tissue for pathology evaluation. Metallic clip was placed within the biopsied lesion under ultrasound guidance. Compression was held. Hemostasis was achieved. Sterile dressing was applie d. Patient tolerated the procedure well without immediate complication. The technologist was in the room with the radiologist throughout the procedure. IMPRESSION: 1.Successful ultrasound guided vacuum-assisted core biopsy of the LEFT breast as described above. 2. Biopsy clip placed within the biopsied lesion.
--- NOTE | 2025-05-22 10:16 | RAD REPORT ---
EXAM DESCRIPTION: S/P CLIP PLACEMENT UNI COMPARISON: Procedural images of ultrasound-guided core biopsy of the same day. TECHNIQUE: Full field CC and MLO views of the left breast were obtained utilizing digital breast 3D t omosynthesis technique. Computer-aided detection was utilized. FINDINGS: Postbiopsy changes are present, with postbiopsy clip in satisfactory location in the expect ed location of the target lesion. No hematoma. IMPRESSION: Postprocedural mammogram for clip localization as above. Density: C: The breasts are heterogeneously dense, which may obscure small masses. Please note that in patients with heterogeneously dense/extremely dense breasts, the sensitivity of s creening mammography is reduced. Adjunct screening modalities such as screening breast ultrasound or breast MRI can be considered if deemed appropriate in this clinical situation. *A negative x-ray report should not delay biopsy if a dominant or clinically suspicious mass is prese nt. 4.8% of cancers are not identified by x-ray. *A negative report may reinforce clinical impression. *Adenosis and dense breasts may obscure an underlying neoplasm. *False positive reports average 6-10%.
== END ==
LOC: DS 09:53
PROVIDERS: ATTEND Surgery
DX: N60.22 Fibroadenosis of left breast (principal); N62 Hypertrophy of breast
CPT/HCPCS: 19083; 77065; 88305

== ENCOUNTER 2025-06-06 06:54 | Day surgery (SDC) | payer OTHER ==
[2025-06-05 16:22] LABS: Absolute Lymphocytes (CBC) 2.1 K/uL (0.7-4.9); Hematocrit 39.5 % (36.0-45.0); Hemoglobin 13.1 g/dL (12.0-15.0); MCH 26.6 pg (27.0-35.0); MCHC 33.1 g/dL (32.0-36.0); MCV 80.3 fL (80-100); MPV 8.7 fL (7.6-11.3); Nucleated RBC Absolute Count 0.0 (0-0); Nucleated Red Blood Cells % 0.0 % (0-0); RBC Red Blood Cell Count 4.92 M/uL (3.86-4.86); White Blood Count 7.20 thou/uL (4.3-10.9)
--- NOTE | 2025-06-05 16:29 | RAD REPORT ---
Procedure: Chest Pa And Lat (2 Views) HISTORY: Preop COMPARISON: none FINDINGS: The lungs appear clear of acute infiltrate. No significant pleural effusion noted. The heart is normal size. IMPRESSION: No acute abnormality is displayed.
[2025-06-05 16:38] LABS: Anion Gap 8.7 mEq/L (5.0-15.0); BUN Blood Urea Nitrogen 15.0 mg/dL (7-18); Glucose Level 94.0 mg/dL (74-106); Potassium 3.7 mEq/L (3.5-5.1)
[2025-06-06] MEDS: Ringers Lactate 1,000 ML IV ONE (07:23)
[2025-06-06] MEDS ORDERED: LIDOCAINE 2% MPF 5 ML VIAL ONE (09:55)
[2025-06-06] MEDS ORDERED: KETOROLAC 30 MG/ML INJ ONE (09:55)
[2025-06-06] MEDS ORDERED: FENTANYL CITR 100 MCG/2 ML ONE (09:55)
[2025-06-06] MEDS ORDERED: ONDANSETRON 4 MG/2 ML VIAL ONE (09:55)
[2025-06-06] MEDS ORDERED: MIDAZOLAM HCL 2 MG/2 ML INJ ONE (09:55)
[2025-06-06] MEDS: CEFAZOLIN SODIUM 1 GM/VIAL ONE (10:04)
[2025-06-06] MEDS ORDERED: Mastisol Adhesive Liq ONE (10:54)
--- NOTE | 2025-06-06 11:05 | P.BOP ---
Preoperative diagnosis: Left breast tender mass Postoperative diagnosis: same Primary procedure: Left breast lumpectomy needle localized Estimated blood loss: <10cc Specimen: mass Findings: mass Anesthesia: General Complications: None Transferred to: Recovery Room Condition: Good
--- NOTE | 2025-06-06 11:57 | OP ---
Date of Procedure: 06/06/2025 Surgeon: Juan A Vang MD Preoperative Diagnosis: Tender left breast mass. Postoperative Diagnosis: Tender left breast mass. Procedure: Left breast lumpectomy needle localized. Estimated Blood Loss: Less than 10 cc. Specimen: Mass. Findings: Mass and lesion within the specimen by Dr. Meraz, Radiology. Anesthesia: General plus local. Indications: This is a case of a 44-year-old patient who came to us with a tender left breast mass i ncreasing in size and discomfort. Prior core biopsy shows some multiple pathology, although no evide nce of cancer is seen, she still have enlarged mass and tender and she wants that excised. The benef its, alternatives, and risks of left breast lumpectomy needle localized fully explained, which includ e, but not limited to, infection, bleeding, damage to adjacent structures, anesthesia complication, r ecurrence, MA, and even . She also understands this may not relieve any symptoms, she might nee d more than one surgical intervention. She signed a consent. Description Of Procedure: The patient went this morning and had localization of the mass by the radi ologist. Then, after that, patient brought to the operating room, placed in supine position. Anesth esia was induced without complication. The left breast was prepped and draped in sterile fashion edith ing sure the wire was still intact. A curvilinear incision was made on the skin. Incision was jason ed down until we found the mass. We followed the wire. The mass was completely excised, the multilo bulated large mass in the left breast. This specimen was sent to the radiologist who confirmed the l esion within the specimen with the wire intact. At that moment, we obtained hemostasis and closed th e subcutaneous tissue with a combination of a Monocryl and 4-0 PDS in a subcuticular fashion after he mostasis was obtained and after injection was done and after irrigation. The patient tolerated the p rocedure well. The patient on her way to recovery in stable condition. LEO/KELLY Voice ID: [id number] Report ID: [id number]
--- NOTE | 2025-06-06 12:02 | DS ---
Diagnosis: Left breast mass. Procedure: Left breast lumpectomy, needle localized. Condition: Stable. Disposition: Home. Activity: As tolerated. No heavy lifting. Discharge Instructions: Follow up in my office in 1 week. Call for appointment at [phone]. Keep a jeramie dry for 48 hours, then may shower. Keep Steri-Strip intact. The patient advised to use good carolee ast support. LEO/KELLY Voice ID: [id number] Report ID: [id number]
[2025-06-06 13:04] VITALS: BP 111/74; TEMP 97.7; O2SAT 97
--- NOTE | 2025-06-06 17:51 | RAD REPORT ---
Exam: Breast preop NL wire with guidance CLINICAL HISTORY: Breast mass TECHNIQUE: The skin and deeper tissues anesthetized with lidocaine. Under sonographic guidance a needle was advanced into the mass within the outer left breast. A Kopans hookwire was then placed through the needle into the mass and the needle removed. IMPRESSION: Sonographic guidance with wire placement into the left breast mass
--- NOTE | 2025-06-06 17:55 | RAD REPORT ---
Exam: Surgical specimen CLINICAL HISTORY: Breast mass TECHNIQUE: Sonographic evaluation of the resected breast tissue left breast performed. The approximately 1.5 cm hypoechoic mass lies within the resected breast tissue IMPRESSION: The left breast mass has been resected and lies within the specimen
== END 2025-06-06 12:50 | disposition home or self-care (01) ==
LOC: OR 06:54
PROVIDERS: ATTEND Surgery
PROC: 0HBU0ZX Excision of Left Breast, Open Approach, Diagnostic (ICD-10-PCS; principal; 2025-06-06 09:00)
DX: D24.2 Benign neoplasm of left breast (principal)
CPT/HCPCS: 19301; 93005; 85025; 80048; 36415; 84703; 88305; 71046; 76098; 19285; J1885; J2704; J2003; J2250; J3010; J1100; J2405; J7120; J0690